=== PATIENT | male | born 1985 | race Caucasian/White ===

== ENCOUNTER 2017-11-29 12:01 | Emergency (ER) | payer SELFPAY | END 2017-11-29 13:09 | disposition home or self-care (01) | LOC: ER 12:01 | DX: M25.571 Pain in right ankle and joints of right foot (principal); X50.0XXA Overexertion from strenuous movement or load, initial encounter; Y93.39 Activity, other involving climbing, rappelling and jumping off; Y99.0 Civilian activity done for income or pay; Y92.89 Other specified places as the place of occurrence of the external cause | CPT/HCPCS: 73590; 73630; 99284; L4350 ==